=== PATIENT | male | born 2000 | race African-American/Black ===

== ENCOUNTER 2021-03-21 07:55 | Emergency (ER) | payer MEDICAID, OTHER ==
[~2021-03-21] VITALS: Ht 172.7 cm; Wt 72.6 kg
[2021-03-21 08:19] VITALS: BP 133/82
[2021-03-21] MEDS ORDERED: IBUPROFEN 800 MG TAB PO ONE (09:00)
== END 2021-03-21 09:32 | disposition home or self-care (01) ==
LOC: ER 07:55
DX: R51.9 Headache, unspecified (principal); F12.10 Cannabis abuse, uncomplicated; W22.09XD Striking against other stationary object, subsequent encounter
CPT/HCPCS: 70450